=== PATIENT | male | born 1935 | race Caucasian/White ===

== ENCOUNTER 2017-11-06 15:18 | Emergency (ER) | payer OTHER, BC ==
[~2017-11-06] VITALS: Ht 182.9 cm; Wt 74.6 kg
[~2017-11-06 15:18] MED LIST: ADVAIR HFA120 INHALA IH; AMLODIPINE BESYL5 MG PO; AMOXICILLIN500 M1 PO; ASPIRIN325 MG PO; CENTRUM SILVER1 EAC3 PO; LEVOTHYROXINE112 MCG PO; LISINOPRIL20 MG PO; METOPROLOL TART25 MG PO; MOTRIN600 MG PO; OMEGA 3-6-91200 MG PO; PERCOCET 5/31 TABLET PO; PRAVASTATIN SOD40 MG PO; VITAMIN B12-FO1 EACH PO; VITAMIN D2000 UNIT PO
[2017-11-06 15:43] LABS: BASOPHIL (%) 0.2 % (0-1); EOSINOPHIL (%) 0.5 % (0-5); HEMATOCRIT 44.8 % (38.0-50.0); HEMOGLOBIN 15.6 G/DL (12.5-16.6); IMMATURE GRANULOCYTE (%) 0.4 % (0.0-0.7); LYMPHOCYTE (%) 3.9 % (15-42); LYMPHOCYTE COUNT 0.3 K/uL (1.0-2.8); MCH 31.4 PG (29.0-34.0); MCHC 34.8 G/DL (30.0-36.0); MCV 90.1 FL (86-99); MONOCYTE (%) 2.8 % (3-12); MONOCYTE COUNT 0.2 K/uL (0-0.8); NEUTROPHIL (%) 92.2 % (45-76); NEUTROPHIL COUNT 7.8 K/uL (1.8-6.4); RBC DIS.WIDTH-CV 12.7 % (11.8-14.6); RBC DIS.WIDTH-SD 41.1 % (39-53); RED BLOOD COUNT 4.97 M/uL (4.00-5.50); WHITE BLOOD COUNT 8.5 K/uL (4.1-10.2)
[2017-11-06 15:45] LABS: PLATELET COUNT 128 K/uL (156-360)
[2017-11-06 15:56] LABS: ALBUMIN 3.8 g/dL (3.2-4.8); CHLORIDE 103 mEq/L (99-109); MAGNESIUM 1.7 mg/dL (1.3-2.7); POTASSIUM 3.5 mEq/L (3.7-5.4); SODIUM 143 mEq/L (136-147)
[2017-11-06 15:58] LABS: GLUCOSE 94 mg/dL (70-99); TOTAL PROTEIN 6.5 g/dL (6.4-8.3)
[2017-11-06 16:01] LABS: APPEARANCE SL.HAZY ((CLEAR)); BILIRUBIN NEGATIVE; BLOOD NEGATIVE; COLOR YELLOW ((YELLOW)); GLUCOSE (STRIP) NEGATIVE; KETONES NEGATIVE; LEUKOCYTES NEGATIVE; NITRITE NEGATIVE; PROTEIN (STRIP) NEGATIVE; SPECIFIC GRAVITY 1.011 (1.000-1.030); UROBILINOGEN 0.2 MG/DL (0.2-1.0)
[2017-11-06 16:02] LABS: ALKALINE PHOSPHATASE 81 IU/L (3-129); CREATININE 0.9 mg/dL (0.6-1.3); GFR ESTIMATE (CALCULATED) > 59 mL/min/ (58.99-99999)
[2017-11-06 16:03] LABS: UREA NITROGEN (BUN) 13 mg/dL (9-23)
[2017-11-06 16:04] LABS: AST (GOT) 27 IU/L (2-34)
[2017-11-06 16:05] LABS: ALT (GPT) 30 IU/L (3-49)
[2017-11-06 16:07] LABS: BACTERIA NONE SEEN /HPF; EPITHELIAL CELLS RARE /HPF; MUCUS TRACE /LPF; RED BLOOD CELLS 0-5 /HPF (0-5); UCUL ADDED? NO; WHITE BLOOD CELLS 0-5 /HPF (0-5)
[2017-11-06 18:53] VITALS: BP 105/65
== END 2017-11-06 18:54 | disposition home or self-care (01) ==
LOC: EME 15:18
PROVIDERS: Emergency Medicine
DX: B34.9 Viral infection, unspecified (principal); N40.0 Benign prostatic hyperplasia without lower urinary tract symptoms; I10 Essential (primary) hypertension; F41.9 Anxiety disorder, unspecified; Z87.440 Personal history of urinary (tract) infections; Z85.850 Personal history of malignant neoplasm of thyroid; Z85.118 Personal history of other malignant neoplasm of bronchus and lung; Z90.49 Acquired absence of other specified parts of digestive tract; Z79.82 Long term (current) use of aspirin
CPT/HCPCS: 71046; 80053; 81003; 83735; 85025; 87502; 99281; 99285; J7030